=== PATIENT | female | born 2000 | race African-American/Black ===

== ENCOUNTER 2024-01-23 21:40 | Inpatient (IN) | payer OTHER ==
[2024-01-24 00:03] LABS: PH,URINE 6.5 (5.0-8.0); URINE APPEARANCE CLEAR; URINE BILIRUBIN NEGATIVE (NEGATIVE); URINE COLOR YELLOW; URINE GLUCOSE (UA) NEGATIVE (NEGATIVE); URINE KETONE 1+ (NEGATIVE); URINE LEUK ESTERASE NEGATIVE (NEGATIVE); URINE NITRITE NEGATIVE (NEGATIVE); URINE PROTEIN NEGATIVE (NEGATIVE)
[2024-01-24 00:03] LABS: BASO % 0.6 % (0-2.0); EOS % 4.4 % (0-4.5); HEMATOCRIT 34.4 % (32.4-45.2); HEMOGLOBIN 11.3 GM/dL (10.7-15.3); LYMPH % 12.4 % (8-40); MCH 27.3 pg (25.7-33.7); MCHC 32.8 g/dl (32.0-36.0); MEAN CELL VOLUME 83.3 fl (80-96); MEAN PLT VOLUME 6.7 fl (7.5-11.1); MONO % 8.5 % (3.8-10.2); NEUT % 74.1 % (42.8-82.8); PLATELET COUNT 338 10^3/uL (134-434); RBC 4.13 M/mm3 (3.60-5.2); WHITE BLOOD COUNT 8.7 K/mm3 (4.0-10.0)
[2024-01-24 00:42] LABS: POTASSIUM 3.3 mmol/L (3.5-5.1)
[2024-01-24 00:44] LABS: CALCIUM 9.2 mg/dL (8.5-10.1)
[2024-01-24 00:45] LABS: BLOOD UREA NITROGEN 6.8 mg/dL (7-18)
[2024-01-24 00:48] LABS: CREATININE 0.7 mg/dL (0.55-1.3)
[2024-01-24 00:49] LABS: BILIRUBIN,TOTAL 0.3 mg/dL (0.2-1); TOT PROT 7.3 g/dl (6.4-8.2)
[2024-01-24] MEDS: DINOPROSTONE 10 MG VAGINAL SUPPOSITORY VG ONE (02:25)
[2024-01-24] MEDS: ELECTROLYTE-148 SOLN 1,000 ML IV SCH ×3 (02:35→10:51)
[2024-01-24 02:44] LABS: INR 0.87 (0.83-1.09); PROTHROMBIN TIME (PATIENT) 9.9 SEC (9.7-13.0)
[2024-01-24 02:46] LABS: ACTIVATED PTT 31.4 SECONDS (25.2-36.5)
[2024-01-24 02:54] VITALS: BMI 29.5
[2024-01-24 05:30] LABS: METHADONE, UR NEGATIVE (NEGATIVE); OPIATES, URI NEGATIVE (NEGATIVE); PHENCYCLIDINE,URINE NEGATIVE (NEGATIVE)
[2024-01-24 05:37] LABS: COCAINE, UR NEGATIVE (NEGATIVE); URINE BARBITURATES NEGATIVE (NEGATIVE)
[2024-01-24 05:41] LABS: URINE AMPHETAMINES NEGATIVE (NEGATIVE); URINE BENZODIAZEPINES NEGATIVE (NEGATIVE)
[2024-01-24] MEDS ORDERED: OXYTOCIN 30 UNITS in 0.9% NS 30 UNIT/500 ML INFUS.BAG IVPB ONE (19:25)
[2024-01-24] MEDS: OXYTOCIN 30 UNITS in 0.9% NS 30 UNIT/500 ML INFUS.BAG IVPB SCH (19:45)
[2024-01-25] MEDS ORDERED: PROMETHAZINE HCL 25 MG/1 ML VIAL ONE (08:34)
[2024-01-25] MEDS ORDERED: BUTORPHANOL TARTRATE 2 MG/ML VIAL ONE (08:34)
[2024-01-25] MEDS: PROMETHAZINE HCL 25 MG/1 ML VIAL IVPB ONE (08:40)
[2024-01-25] MEDS: BUTORPHANOL TARTRATE 1 MG/ML VIAL IVPUSH ONE (08:40)
[2024-01-25] MEDS ORDERED: LIDOCAINE HCL 1% PRESERVATIVE FREE - 30ML VIAL ONE (10:55)
[2024-01-25] MEDS ORDERED: OXYTOCIN 20 UNITS in 0.9% NS 20 UNIT/1,000 ML INFUS.BAG IV ONE (11:58)
[2024-01-25] MEDS: OXYTOCIN 20 UNITS in 0.9% NS 20 UNIT/1,000 ML INFUS.BAG IV SCH (12:00)
[2024-01-25] MEDS ORDERED: ACETAMINOPHEN 325 MG TABLET (FP) PO PRN (12:42)
[2024-01-25] MEDS ORDERED: BENZOCAINE 28 GM HEMORRHOIDAL OINTMENT TP PRN (12:42)
[2024-01-25] MEDS ORDERED: oxyCODONE HCL 5 MG TABLET PO PRN (12:42)
[2024-01-25] MEDS ORDERED: BISACODYL 10 MG SUPP.RECT RC PRN (12:42)
[2024-01-25] MEDS ORDERED: WITCH HAZEL 50% (TUCKS) 40 PAD/JAR PAD TP PRN (12:42)
[2024-01-25] MEDS ORDERED: IBUPROFEN 600 MG TABLET (FP) PO PRN (12:42)
[2024-01-25] MEDS ORDERED: METHYLERGONOVINE MALEATE 0.2 MG/1 ML AMP IM PRN (12:42)
[2024-01-25 12:58] LABS: CORD HCO3 17.7 mmHg (20-29); CORD PCO2 37.2 mmHg (30-78); CORD pH 7.296 (7.14-7.44)
[2024-01-25] MEDS: FERROUS SO4 325 MG TABLET (FP) PO SCH (17:30)
[2024-01-25] MEDS: IBUPROFEN 100 MG/5 ML UNIT DOSE CUPS PO PRN (18:12)
[2024-01-25] MEDS: BENZOCAINE 20% 57 GM BOTTLE TP PRN (18:16)
[2024-01-26 08:27] LABS: BASO % 0.4 % (0-2.0); EOS % 1.1 % (0-4.5); HEMATOCRIT 27.2 % (32.4-45.2); LYMPH % 13.4 % (8-40); MCH 27.2 pg (25.7-33.7); MEAN CELL VOLUME 82.4 fl (80-96); MEAN PLT VOLUME 7.1 fl (7.5-11.1); MONO % 7.9 % (3.8-10.2); NEUT % 77.2 % (42.8-82.8); PLATELET COUNT 246 10^3/uL (134-434); RDW 14.7 % (11.6-15.6); WHITE BLOOD COUNT 11.4 K/mm3 (4.0-10.0)
[2024-01-26] MEDS: PRENATAL VITAMINS W/ FOLIC ACID TABLET (FP) PO SCH (10:00)
[2024-01-26] MEDS ORDERED: SENNOSIDES/DOCUSATE COMBO (SENNA PLUS) TABLET (UD) PO PRN (22:00)
[2024-01-27] MEDS: ACETAMINOPHEN 650 MG/20.3 ML ORAL SOLUTION (CUPS) PO PRN (08:19)
[2024-01-27 09:48] VITALS: BP 126/25; PULSE 82; RESP 17; TEMP 98
== END 2024-01-27 12:35 | disposition home or self-care (01) | DRG 560 ==
LOC: JDEL 21:40 → JLDR 01-24 01:15 → J3W 01-25 14:45
PROVIDERS: ADMIT Obstetrics & Gynecology; ATTEND Obstetrics & Gynecology
PROC: 3E0P7VZ Introduction of Hormone into Female Reproductive, Via Natural or Artificial Opening (ICD-10-PCS; 2024-01-23)
PROC: 10E0XZZ Delivery of Products of Conception, External Approach (ICD-10-PCS; principal; 2024-01-25)
PROC: 0KQM0ZZ Repair Perineum Muscle, Open Approach (ICD-10-PCS; 2024-01-25)
PROC: 10907ZC Drainage of Amniotic Fluid, Therapeutic from Products of Conception, Via Natural or Artificial Opening (ICD-10-PCS; 2024-01-25)
DX: O36.5930 Maternal care for other known or suspected poor fetal growth, third trimester, not applicable or unspecified (principal); O70.1 Second degree perineal laceration during delivery; O36.8130 Decreased fetal movements, third trimester, not applicable or unspecified; J02.9 Acute pharyngitis, unspecified; Z3A.39 39 weeks gestation of pregnancy; Z37.0 Single live birth
CPT/HCPCS: 0241U-QW; 36415; 36600; 59409; 76819-TC; 80053; 80307; 81003; 82803; 85025; 85610; 85730; 86780; 86850; 86900; 86901; 87070; 87086; 88307-TC